=== PATIENT | male | born 1985 | race Two or more races ===

== ENCOUNTER 2016-10-27 16:13 | Emergency (ER) | payer BC ==
[~2016-10-27] VITALS: Ht 182.9 cm; Wt 99.8 kg
--- NOTE | 2016-10-27 16:45 | NUR ---
BIB FAMILY C/O RIGHT ANKLE PAIN S/P SKATEBOARDING AND LANDING ON FOOT. PATIENT'S RIGHT FOOT SWOLLEN. A/OX 4. BREATHING EVEN AND UNLABORED. NO SOB. VITALS STABLE. SAFETY AND COMFORT MEASURES IN PLACE. AWAITING MD ORDERS.
--- NOTE | 2016-10-27 17:45 | NUR ---
MEDICATED PATIENT PER MD ORDERS.
--- NOTE | 2016-10-27 17:55 | NUR ---
SHORT POSTERIOR LEG SPLINT APPLIED.
--- NOTE | 2016-10-27 18:06 | NUR ---
Patient discharged to home in stable condition. Written and verbal after care instructions given. Patient verbalizes understanding of instruction.
[2016-10-27 18:08] VITALS: BP 132/76
== END 2016-10-27 18:10 | disposition home or self-care (01) ==
LOC: ER 16:18
DX: S82.831A Other fracture of upper and lower end of right fibula, initial encounter for closed fracture (principal); V00.131A Fall from skateboard, initial encounter; Y93.51 Activity, roller skating (inline) and skateboarding; Y92.89 Other specified places as the place of occurrence of the external cause; Y99.8 Other external cause status
CPT/HCPCS: 73610-TC; A4606; Z7610